=== PATIENT | male | born 1990 | race Caucasian/White ===

== ENCOUNTER 2019-09-16 20:58 | Emergency (ER) | payer OTHER ==
[~2019-09-16] VITALS: Ht 175.3 cm; Wt 81.6 kg
[2019-09-16] MEDS ORDERED: MOTRIN (21:06)
== END 2019-09-16 23:25 | disposition home or self-care (01) ==
LOC: ER 20:58
DX: K58.8 Other irritable bowel syndrome (principal); R10.13 Epigastric pain; F41.1 Generalized anxiety disorder

== ENCOUNTER 2022-03-02 23:08 | Emergency (ER) | payer OTHER ==
[~2022-03-02] VITALS: Ht 175.3 cm; Wt 76.2 kg
[~2022-03-02 23:08] MED LIST: MOTRIN
[2022-03-03] MEDS ORDERED: ACETAMINOPHEN650 M2 PO (04:18)
== END 2022-03-03 04:42 | disposition home or self-care (01) ==
LOC: ER 23:08
DX: N39.0 Urinary tract infection, site not specified (principal); R10.2 Pelvic and perineal pain